=== PATIENT | male | born 1940 | race Caucasian/White ===

== ENCOUNTER 2020-08-17 10:27 | Inpatient (IN) ==
[2020-08-17] MEDS ORDERED: 0.9 % Sodium Chloride 500 ML IVC ONE (10:49)
[2020-08-17 11:12] LABS: Bilirubin,Urine Negative (Negative); Blood,Urine Negative (Negative); Clarity,Urine Clear (Clear); Color,Urine Light-Yellow (Yellow); Glucose,Urine (UA) Normal (Normal); Ketones,Urine Negative (Negative); Leukocyte Esterase,Urine Negative (Negative); Nitrite,Urine Negative (Negative); Protein,Urine Negative (Neg-Trace); Urobilinogen,Urine Normal (Normal)
[2020-08-17 11:32] LABS: Hematocrit 37.6 % (37.5-50.1); Hemoglobin 12.1 g/dL (12.9-16.9); Mean Corpuscular HGB Conc 32.2 g/dL (31.6-35.5); Mean Corpuscular Hemoglobin 30.6 pg (28.0-33.3); Mean Corpuscular Volume 95.2 fL (83.0-100.0); Mean Platelet Volume 9.8 fL (9.4-12.4); Platelet Count 303 K/mcL (140-400); Red Blood Count 3.95 M/mcL (4.19-5.50); Red Cell Distribution Width 15.8 % (11.5-14.5); White Blood Count 9.9 K/mcL (4.3-11.1)
[2020-08-17 11:41] LABS: Albumin 3.3 g/dL (3.5-5.7); Albumin/Globulin Ratio 0.8 (1.1-2.2); Bilirubin,Direct 0.2 mg/dL (0.0-0.2); Bilirubin,Indirect 0.4 mg/dL (0.0-1.0); Bilirubin,Total 0.6 mg/dL (0.3-1.0); Calcium 10.4 mg/dL (8.6-10.3); Potassium 4.2 mEq/L (3.5-5.1); Total Protein 7.3 g/dL (6.4-8.9); Troponin I 0.03 ng/mL (< 0.04)
[2020-08-17] MEDS ORDERED: Naloxone 0.4 MG/ML INJ IVP PRN (13:34)
[2020-08-17] MEDS ORDERED: Perflutren Lipid Microsphere 1.3 ML in 0.9 % Sodium Chloride 8.7 ML IVP PRN (13:40)
[2020-08-17] MEDS ORDERED: Sodium Bicarbonate 75 MEQ in 0.45 % Sodium Chloride 1,000 ML IVC SCH (13:45)
[2020-08-17] MEDS ORDERED: Cefepime HCl 2,000 MG in 0.9 % Sodium Chloride Mini Bag 100 ML IVPB STA (13:51)
[2020-08-17] MEDS ORDERED: Cefepime HCl 2,000 MG in Water for inj. (sterile) 20 ML IVP STA (14:15)
[2020-08-17] MEDS ORDERED: *HR* HYDROcodone/Acet 5/325 mg TABLET PO PRN (14:22)
[2020-08-17 14:53] LABS: Adenovirus Not Detected (Not Detect); Bordetella Pertussis Not Detected (Not Detect); Chlamydophila pneumoniae Not Detected (Not Detect); Coronavirus 229E Not Detected (Not Detect); Coronavirus HKU1 Not Detected (Not Detect); Coronavirus NL63 Not Detected (Not Detect); Coronavirus OC43 Not Detected (Not Detect); Human Metapneumovirus Not Detected (Not Detect); Human Rhinovirus/Enterovirus Not Detected (Not Detect); Influenza A Subtype 2009 H1 Not Detected (Not Detect); Influenza B Not Detected (Not Detect); Mycoplasma pneumoniae Not Detected (Not Detect); Parainfluenza Virus 1 Not Detected (Not Detect); Parainfluenza Virus 2 Not Detected (Not Detect); Parainfluenza Virus 3 Not Detected (Not Detect); Parainfluenza Virus 4 Not Detected (Not Detect); Respiratory Syncytial Virus Not Detected (Not Detect); SARS-CoV-2 Not Detected (Not Detect)
[2020-08-17] MEDS ORDERED: *HR* Dextrose 50 % in Water (Vial) 50 ML VIAL IVP PRN (14:59)
[2020-08-17] MEDS ORDERED: Dextrose Gel 15 GM/37.5 ML TUBE PO PRN ×2 (14:59)
[2020-08-17] MEDS ORDERED: D5% in Water 1,000 ML IVC PRN (14:59)
[2020-08-17] MEDS: Cefepime HCl 1,000 MG in Water for inj. (sterile) 10 ML IVP SCH ×3 (15:07→23:57)
[2020-08-17] MEDS: Levalbuterol Neb 1.25 MG/3 ML IH SCH ×3 (15:18→22:27)
[2020-08-17] MEDS: Azithromycin 500 MG in 0.9 % Sodium Chloride 250 ML IVPB SCH (15:28)
[2020-08-17] MEDS: Insulin LISPRO 300 UNITS/3 ML VIAL SUBQ SCH ×2 (16:40→20:27)
[2020-08-17] MEDS: *HR* Heparin 5,000 UNIT/ML VIAL SQ SCH (17:50)
[2020-08-17 21:39] LABS: INR 1.2; Prothrombin Time 13.9 Seconds (9.4-12.1)
[2020-08-18] MEDS: Levalbuterol Neb 1.25 MG/3 ML IH SCH ×4 (04:05→22:01)
[2020-08-18 05:10] LABS: Basophils % 0.3 %; Eosinophils # 0.1 K/mcL (0.0-0.6); Eosinophils % 0.9 %; Hematocrit 37.7 % (37.5-50.1); Hemoglobin 12.3 g/dL (12.9-16.9); Immature Granulocytes % 0.3 % (0-4); Lymphocytes # 1.2 K/mcL (0.6-4.6); Mean Corpuscular HGB Conc 32.6 g/dL (31.6-35.5); Mean Corpuscular Hemoglobin 31.6 pg (28.0-33.3); Mean Corpuscular Volume 96.9 fL (83.0-100.0); Mean Platelet Volume 10.3 fL (9.4-12.4); Monocytes # 0.8 K/mcL (0.0-1.3); Monocytes % 9.3 %; Neutrophils # 6.6 K/mcL (1.6-8.9); Platelet Count 278 K/mcL (140-400); Red Blood Count 3.89 M/mcL (4.19-5.50); Red Cell Distribution Width 15.8 % (11.5-14.5); Segmented Neutrophils % 75.2 %; White Blood Count 8.8 K/mcL (4.3-11.1)
[2020-08-18 05:48] LABS: Estimated Average Glucose 140 mg/dl; Hemoglobin A1C 6.5 %
[2020-08-18 05:57] LABS: BUN/Creatinine Ratio 47 (6-26); Blood Urea Nitrogen 57 mg/dL (8-23); Calcium 9.8 mg/dL (8.6-10.3); Carbon Dioxide 18 mEq/L (23-29); Chloride 102 mEq/L (98-107); Chol/HDL Ratio 3.6 (0-4.9); Cholesterol 127 mg/dL (< 200); Glucose 205 mg/dL (70-105); HDL Cholesterol 35 mg/dL (40-59); LDL Cholesterol,Calculated 68 mg/dL (< 100); Magnesium 1.7 mg/dL (1.6-2.6); Osmolality,Calculated 300 (280-300); Phosphorous 2.1 mg/dL (2.7-4.5); Potassium 3.7 mEq/L (3.5-5.1); Sodium 134 mEq/L (136-145); Thyroid Stimulating Hormone 8.683 mcIU/mL (0.340-5.600); Triglycerides 122 mg/dL (< 150); eGFR For African Americans > 60 (> 60); eGFR For Non-African Americans 58 (> 60)
[2020-08-18] MEDS: *HR* Heparin 5,000 UNIT/ML VIAL SQ SCH ×2 (06:21→18:18)
[2020-08-18] MEDS: Cefepime HCl 1,000 MG in Water for inj. (sterile) 10 ML IVP SCH (08:09)
[2020-08-18] MEDS: Insulin LISPRO 300 UNITS/3 ML VIAL SUBQ SCH ×4 (08:10→19:40)
[2020-08-18] MEDS: Aspirin 81 MG TAB.CHEW PO SCH (08:10)
[2020-08-18] MEDS ORDERED: NON-FORMULARY MEDICATION 1 EACH EACH (Fluticasone/Umeclidin/Vilanter [Trelegy Ellipta 100- IH SCH (09:00)
[2020-08-18] MEDS: carvediloL 6.25 MG TABLET PO SCH ×2 (10:00→18:18)
[2020-08-18] MEDS: Megestrol Acetate 400 MG/10 ML UDC PO SCH (10:07)
[2020-08-18] MEDS: Tiotropium 10 INH DOSE IH SCH (10:37)
[2020-08-18] MEDS: Budesonide/Formoterol 160/4.5 1 PUFF INH IH SCH ×2 (10:37→22:00)
[2020-08-18 14:28] LABS: Triiodothyronine (T3) Free 2.2 pg/mL (2.50-3.90)
[2020-08-18] MEDS ORDERED: levoFLOXacin 750 MG/150 ML 750 MG/150 ML BAG IVPB SCH (18:00)
[2020-08-18] MEDS ORDERED: Cefepime HCl 2,000 MG in Water for inj. (sterile) 20 ML IVP SCH (18:00)
[2020-08-18] MEDS: Azithromycin 500 MG in 0.9 % Sodium Chloride 250 ML IVPB SCH (18:37)
[2020-08-18] MEDS ORDERED: Mirtazapine 15 MG TABLET PO SCH (21:00)
[2020-08-19] MEDS: Levalbuterol Neb 1.25 MG/3 ML IH SCH ×2 (03:42→10:59)
[2020-08-19] MEDS: *HR* Heparin 5,000 UNIT/ML VIAL SQ SCH (05:20)
[2020-08-19] MEDS: Insulin LISPRO 300 UNITS/3 ML VIAL SUBQ SCH ×2 (08:40→12:32)
[2020-08-19] MEDS: Aspirin 81 MG TAB.CHEW PO SCH (09:07)
[2020-08-19] MEDS: carvediloL 6.25 MG TABLET PO SCH (09:07)
[2020-08-19] MEDS: Megestrol Acetate 400 MG/10 ML UDC PO SCH (09:08)
[2020-08-19] MEDS: Tiotropium 10 INH DOSE IH SCH (10:58)
[2020-08-19] MEDS: Budesonide/Formoterol 160/4.5 1 PUFF INH IH SCH (10:59)
[2020-08-19 11:04] VITALS: BP 108/67
== END 2020-08-19 13:10 | disposition hospice, home (50) | DRG 871 ==
LOC: 2NENU 10:27 → EMEROOARM 10:27 → SUATTDRO 13:58 → 2NENU 14:49
PROVIDERS: ADMIT Internal Medicine; ATTEND Family Medicine